=== PATIENT | male | born 1965 | race Caucasian/White ===

== ENCOUNTER → 2020-08-19 09:02 | Outpatient (BNVA) | payer OTHER, SELFPAY | PROVIDERS: PCP Nurse Practitioner; Referring Provider Nurse Practitioner; Visit Provider Anesthesiology Pain Medicine | DX: M51.16 Intervertebral disc disorders with radiculopathy, lumbar region (principal); M47.816 Spondylosis without myelopathy or radiculopathy, lumbar region; M54.9 Dorsalgia, unspecified; Z79.891 Long term (current) use of opiate analgesic | CPT/HCPCS: 99205 ==

== ENCOUNTER → 2020-09-27 10:56 | Outpatient (BNVA) | payer OTHER, SELFPAY | PROVIDERS: PCP Nurse Practitioner; Visit Provider Internal Medicine Rheumatology | DX: M19.90 Unspecified osteoarthritis, unspecified site (principal); R76.8 Other specified abnormal immunological findings in serum; M35.9 Systemic involvement of connective tissue, unspecified; M10.9 Gout, unspecified; Z79.899 Other long term (current) drug therapy | CPT/HCPCS: 99204 ==

== ENCOUNTER 2020-09-27 12:51 | Outpatient (CLI) | payer OTHER, SELFPAY ==
--- NOTE | 2020-09-27 13:10 | XR_ITS ---
WS: [id number] Exam: XR foot RT min 3V* [id number] Date/Time of Exam: 09/27/2020 1:11 PM Reason For Exam: M19.90 - Unspecified osteoarthritis, unspecified site No acute fracture or dislocation. Normal soft tissues. Mild DJD at the first MP joint. XR/XR foot RT min 3V* [id number] IMPRESSION: 1. Mild DJD at the first MP joint. No fracture or other significant finding.
--- NOTE | 2020-09-27 13:10 | XR_ITS ---
WS: [id number] Exam: XR hand RT min 3V* [id number] Date/Time of Exam: 09/27/2020 1:11 PM Reason For Exam: M19.90 - Unspecified osteoarthritis, unspecified site No acute fracture or dislocation. Mild degenerative changes in the IP joints. No soft tissue foreign bodies. XR/XR hand RT min 3V* [id number] IMPRESSION: 1. Mild degenerative changes.
--- NOTE | 2020-09-27 13:10 | XR_ITS ---
WS: [id number] Exam: XR foot LT min 3V* [id number] Date/Time of Exam: 09/27/2020 1:11 PM Reason For Exam: M19.90 - Unspecified osteoarthritis, unspecified site No acute fracture or dislocation. Moderate degenerative change at the first MP joint. Normal soft tis sues. XR/XR foot LT min 3V* [id number] IMPRESSION: 1. Moderate degenerative change at the first MP joint.
--- NOTE | 2020-09-27 13:10 | XR_ITS ---
WS: [id number] Exam: XR hand LT min 3V* [id number] Date/Time of Exam: 09/27/2020 1:11 PM Reason For Exam: M19.90 - Unspecified osteoarthritis, unspecified site No fracture or dislocation. Minimal degenerative changes in the IP joints and CMC joint of the thumb. Normal soft tissues. XR/XR hand LT min 3V* [id number] IMPRESSION: 1. Minimal degenerative changes.
[2020-09-27 14:28] LABS: Uric Acid 4.3 mg/dL (3.4-7.0)
== END 2020-09-27 12:52 | disposition home or self-care (01) ==
PROVIDERS: PCP Nurse Practitioner; Visit Provider Internal Medicine Rheumatology
DX: M19.90 Unspecified osteoarthritis, unspecified site (principal); M10.9 Gout, unspecified
CPT/HCPCS: 36415; 73130; 73630; 84550

== ENCOUNTER → 2020-11-01 12:46 | Outpatient (BNVA) | payer OTHER, SELFPAY | PROVIDERS: PCP Nurse Practitioner; Visit Provider Internal Medicine Rheumatology | DX: M19.90 Unspecified osteoarthritis, unspecified site (principal); R76.8 Other specified abnormal immunological findings in serum; M35.9 Systemic involvement of connective tissue, unspecified; Z79.899 Other long term (current) drug therapy; Z11.59 Encounter for screening for other viral diseases; Z11.1 Encounter for screening for respiratory tuberculosis | CPT/HCPCS: 99214 ==

== ENCOUNTER 2020-11-01 13:47 | Outpatient (CLI) | payer OTHER, SELFPAY ==
--- NOTE | 2020-11-01 14:13 | XR_ITS ---
WS: [id number] LATERAL LUMBAR SPINE: 3 view. Lateral radiographs are performed in upright neutral, flexion and extension to the patient's toleranc e. HISTORY: M47.816 - Spondylosis without myelopathy or radiculopathy, lumbar region COMPARISON: None available. L4 anterolisthesis by 5.2 mm on neutral imaging. Increases to 7.7 mm during flexion and 6.8 mm during extension. Remaining vertebral bodies demonstrate normal alignment with mild increase in lordosis. Facet joint a rthritis is moderate at L4-5 and L5-S1. XR/XR lumbar spine f/e only [id number] IMPRESSION: Grade 1 anterolisthesis of L4 with mild flexion and extension instability.
== END 2020-11-01 13:48 | disposition home or self-care (01) ==
LOC: RADWPI 13:48
PROVIDERS: PCP Nurse Practitioner; Visit Provider Anesthesiology Pain Medicine
DX: M47.816 Spondylosis without myelopathy or radiculopathy, lumbar region (principal); M53.2X6 Spinal instabilities, lumbar region
CPT/HCPCS: 72120

== ENCOUNTER → 2020-11-04 10:23 | Outpatient (BNVA) | payer OTHER, SELFPAY | PROVIDERS: PCP Nurse Practitioner; Visit Provider Anesthesiology Pain Medicine | DX: M51.16 Intervertebral disc disorders with radiculopathy, lumbar region (principal); M47.816 Spondylosis without myelopathy or radiculopathy, lumbar region; M54.9 Dorsalgia, unspecified; Z79.891 Long term (current) use of opiate analgesic | CPT/HCPCS: 99214 ==

== ENCOUNTER 2020-11-28 09:57 | Outpatient (CLI) | payer OTHER, SELFPAY ==
--- NOTE | 2020-11-28 11:00 | MR_ITS ---
WS: [id number] MRI LUMBAR SPINE NONCONTRAST TECHNIQUE: Sagittal T1, T2 and STIR imaging. Axial T1 and T2 imaging. CLINICAL INFORMATION: M51.16 - Intervertebral disc disorders with radiculopathy... COMPARISON: None. FINDINGS: Mild lumbar curve. No acute compression. Slight anterolisthesis L4 on L5. No acute compression fractu res. . L1-L2: No significant disc bulging. Moderate facet arthropathy. Spinal canal and foramen are patent. L2-L3: No significant disc bulging. Moderate facet arthropathy. Spinal canal and foramen are patent. L3-L4: Minimal annular bulging. Slight effacement of ventral thecal sac. Moderate facet arthropathy. Small left foraminal protrusion with mild left foraminal narrowing. Slight contact of the exiting lef t L3 nerve root. L4-L5: Mild annular bulging with mild to moderate central canal stenosis. Impingement on the traversi ng L5 nerve roots bilaterally, right greater than left.. Moderate facet arthropathy. Right facet oste ophytic ridging impinges the right subarticular recess. Small right annular fissure. Moderate right a nd mild left foraminal narrowing. Slight impingement on the exiting right L4 nerve root. L5-S1: Mild annular bulging. Slight effacement of ventral thecal sac. Mild left and no significant ri ght foraminal narrowing. Moderate facet arthropathy. Small right renal cysts. Visualized pelvic bony structures: Normal. Paravertebral soft tissues: Normal. MR/MR lumbar spine wo con* [id number] IMPRESSION: 1. Mild lumbar curve. No acute compression. 2. Slight anterolisthesis L4 on L5 with mild to moderate central canal stenosi s. Impingement on the traversing right greater than left L5 nerve roots with ri ght facet osteophytic ridging. 3. Right foraminal protrusion L4-5 with a small annular fissure and moderate r ight foraminal narrowing. Impingement of exiting right L4 nerve root. 4. Small left foraminal protrusion slightly impinges the exiting left L3 nerve root with mild left foraminal narrowing. 5. Moderate facet arthropathy L3-L5.
== END 2020-11-28 09:58 | disposition home or self-care (01) ==
LOC: RADSHAW 10:04
PROVIDERS: PCP Nurse Practitioner; Visit Provider Anesthesiology Pain Medicine
DX: M51.16 Intervertebral disc disorders with radiculopathy, lumbar region (principal); M47.816 Spondylosis without myelopathy or radiculopathy, lumbar region; M51.26 Other intervertebral disc displacement, lumbar region
CPT/HCPCS: 72148

== ENCOUNTER → 2020-12-01 09:19 | Outpatient (BNVA) | payer OTHER, SELFPAY | PROVIDERS: PCP Nurse Practitioner; Visit Provider Internal Medicine Rheumatology | DX: M19.90 Unspecified osteoarthritis, unspecified site (principal); M35.9 Systemic involvement of connective tissue, unspecified; Z79.899 Other long term (current) drug therapy; Z11.59 Encounter for screening for other viral diseases; Z11.1 Encounter for screening for respiratory tuberculosis | CPT/HCPCS: 36415; 80076; 82565; 85025; 86140; 86480; 86704; 86803; 87340 ==

== ENCOUNTER → 2020-12-02 09:45 | Outpatient (BNVA) | payer OTHER, SELFPAY | PROVIDERS: PCP Nurse Practitioner; Visit Provider Anesthesiology Pain Medicine | DX: M51.16 Intervertebral disc disorders with radiculopathy, lumbar region (principal); M47.816 Spondylosis without myelopathy or radiculopathy, lumbar region; M79.604 Pain in right leg; M79.605 Pain in left leg; F12.90 Cannabis use, unspecified, uncomplicated; Z79.891 Long term (current) use of opiate analgesic | CPT/HCPCS: 99214 ==

== ENCOUNTER → 2020-12-23 09:52 | Outpatient (BNVA) | payer OTHER, SELFPAY | PROVIDERS: PCP Nurse Practitioner; Visit Provider Nurse Practitioner | DX: E55.9 Vitamin D deficiency, unspecified (principal); I10 Essential (primary) hypertension; Z12.5 Encounter for screening for malignant neoplasm of prostate | CPT/HCPCS: 80053; 80061; 81000; 82306; 84443; G0103 ==

== ENCOUNTER → 2021-10-13 09:16 | Outpatient (BNVA) | payer OTHER, SELFPAY | PROVIDERS: Family Provider Family Medicine; Visit Provider Nurse Practitioner | DX: I10 Essential (primary) hypertension (principal); E66.9 Obesity, unspecified; M19.90 Unspecified osteoarthritis, unspecified site | CPT/HCPCS: 80053; 80061; 85025 ==

== ENCOUNTER → 2022-09-21 09:35 | Outpatient (BNVA) | payer OTHER, SELFPAY | PROVIDERS: Family Provider Family Medicine; PCP Nurse Practitioner; Visit Provider Nurse Practitioner | DX: Z12.5 Encounter for screening for malignant neoplasm of prostate (principal); I10 Essential (primary) hypertension | CPT/HCPCS: 80053; 80061; G0103 ==

== ENCOUNTER → 2023-01-18 09:43 | Outpatient (BNVA) | payer OTHER, SELFPAY | PROVIDERS: Family Provider Family Medicine; PCP Nurse Practitioner; Visit Provider Nurse Practitioner | DX: I10 Essential (primary) hypertension (principal); M51.16 Intervertebral disc disorders with radiculopathy, lumbar region; E78.2 Mixed hyperlipidemia | CPT/HCPCS: 80053; 80061 ==

== ENCOUNTER → 2023-07-19 08:03 | Outpatient (BNVA) | payer OTHER, SELFPAY | PROVIDERS: Family Provider Family Medicine; PCP Nurse Practitioner; Visit Provider Nurse Practitioner | DX: I10 Essential (primary) hypertension (principal); E78.2 Mixed hyperlipidemia | CPT/HCPCS: 80053; 80061 ==

== ENCOUNTER → 2024-06-15 15:37 | Outpatient (BNVA) | payer OTHER, SELFPAY | PROVIDERS: Family Provider Family Medicine; PCP Nurse Practitioner; Visit Provider Nurse Practitioner | DX: Z00.00 Encounter for general adult medical examination without abnormal findings (principal); Z13.6 Encounter for screening for cardiovascular disorders; Z12.5 Encounter for screening for malignant neoplasm of prostate; M51.16 Intervertebral disc disorders with radiculopathy, lumbar region | CPT/HCPCS: 80053; 80061; 85025; G0103 ==

== ENCOUNTER → 2024-08-27 16:24 | Outpatient (BNVA) | payer OTHER, SELFPAY | PROVIDERS: Family Provider Family Medicine; PCP Nurse Practitioner; Visit Provider Nurse Practitioner | DX: E78.2 Mixed hyperlipidemia (principal) | CPT/HCPCS: 80053; 80061; 82306; 82607; 83735; 84425; 84443; 84591 ==